=== PATIENT | female | born 2000 | race African-American/Black ===

== ENCOUNTER 2021-02-11 18:19 | Emergency (ER) | payer OTHER ==
[~2021-02-11] VITALS: Ht 167.6 cm; Wt 73.0 kg
[2021-02-11 18:25] VITALS: BP 126/93
== END 2021-02-11 19:30 | disposition left against medical advice (07) ==
LOC: ER 18:19
DX: Z53.21 Procedure and treatment not carried out due to patient leaving prior to being seen by health care provider (principal)